=== PATIENT | male | born 1960 | race Asian ===

== ENCOUNTER 2020-05-26 13:55 | Emergency (ER) | payer SELFPAY ==
[~2020-05-26] VITALS: Ht 172.7 cm; Wt 83.9 kg
[2020-05-26 13:57] VITALS: Ht 172.7 cm; Wt 83.9 kg
[2020-05-26 16:24] VITALS: BP 158/96
== END 2020-05-26 16:24 | disposition home or self-care (01) ==
LOC: ED 13:55
DX: B34.9 Viral infection, unspecified (principal); R05 Cough; I10 Essential (primary) hypertension; Z20.828 Contact with and (suspected) exposure to other viral communicable diseases
CPT/HCPCS: U0003